=== PATIENT | female | born 1995 | race Caucasian/White ===

== ENCOUNTER 2022-09-28 13:19 | Emergency (ER) | payer BC ==
[~2022-09-28] VITALS: Ht 170.2 cm; Wt 66.0 kg
[2022-09-28 13:43] VITALS: BP 119/61
[2022-09-28] MEDS ORDERED: ACETAMINOPHEN 325MG TABLET PO ONE (15:00)
[2022-09-28] MEDS ORDERED: LIDOCAINE 5% PATCH TOP SCH (15:00)
[2022-09-28] MEDS ORDERED: IBUPROFEN 400MG TABLET PO ONE (15:00)
[2022-09-28] MEDS ORDERED: LIDO700A30 TP (16:45)
[2022-09-28] MEDS ORDERED: IBUP-2028 MT (16:45)
== END 2022-09-28 17:06 | disposition home or self-care (01) ==
LOC: ER 13:19
DX: M54.89 Other dorsalgia (principal)
CPT/HCPCS: 81025; 99284

== ENCOUNTER 2023-06-21 16:02 | Emergency (ER) | payer BC ==
[~2023-06-21] VITALS: Ht 170.2 cm; Wt 96.0 kg
[~2023-06-21 16:02] MED LIST: IBUP-2028 MT; LIDO700A30 TP
[2023-06-21 16:06] VITALS: TEMP 97.9; O2SAT 99
[2023-06-21 18:15] VITALS: BP 118/79; PULSE 70; RESP 16
[2023-06-21] MEDS ORDERED: IBUPROFEN 600MG TABLET PO ONE (18:15)
== END 2023-06-21 21:00 | disposition home or self-care (01) ==
LOC: ER 16:02
DX: S96.811A Strain of other specified muscles and tendons at ankle and foot level, right foot, initial encounter (principal); W18.39XA Other fall on same level, initial encounter; Y93.89 Activity, other specified; Y92.89 Other specified places as the place of occurrence of the external cause; Y99.8 Other external cause status
CPT/HCPCS: 72100; 73030; 73060; 73080; 73090; 73610; 73630; 99284